=== PATIENT | female | born 1985 | race African-American/Black ===

== ENCOUNTER 2017-04-25 13:36 | Emergency (ER) | payer OTHER ==
[~2017-04-25] VITALS: Ht 167.6 cm; Wt 55.8 kg
[2017-04-25 13:47] VITALS: BP 136/76
--- NOTE | 2017-04-25 13:54 | NUR ---
Patient ambulated to bed 6. RN evaluating patient at bedside.
--- NOTE | 2017-04-25 13:55 | NUR ---
31 /F bib self for bitlateral ingrown toenails both great toes X 6 MO. PAIN BOTH BIG TOE NAILS . DENIES N/V/D; SKIN IS PINK/WARM/DRY; AAOX4 WITH EVEN AND STEADY GAIT; LUNGS CLEAR BL; HR EVEN AND REGULAR; PT DENIES ANY FEVER, CP, SOB, OR COUGH AT THIS TIME; PATIENT STATES PAIN OF 7/10 AT THIS TIME; VSS; PATIENT POSITIONED FOR COMFORT; HOB ELEVATED; BEDRAILS UP X2; BED DOWN. ER MD MADE AWARE OF PT STATUS.
--- NOTE | 2017-04-25 14:04 | NUR ---
ER MD DR PEREZ EVALUATING PT AT BEDSIDE.
[2017-04-25] MEDS ORDERED: LIDOCAINE/EPI 1% 1:100000 20 ML VIAL INJ ONE (14:15)
[2017-04-25] MEDS ORDERED: LIDOCAINE/EPI MPF 1%1:200000 30 ML VIAL INJ SCH (14:25)
[2017-04-25] MEDS ORDERED: LIDOCAINE/EPI 2% 1:100000 20 ML VIAL INJ ONE ×2 (14:30→14:32)
[2017-04-25 15:30] VITALS: BP 106/68
== END 2017-04-25 15:30 | disposition home or self-care (01) ==
LOC: MED 13:36
DX: L60.0 Ingrowing nail (principal)
CPT/HCPCS: 11765; 99284; J2001

== ENCOUNTER 2023-09-21 16:29 | Emergency (ER) | payer OTHER ==
[~2023-09-21] VITALS: Ht 157.5 cm; Wt 59.0 kg
[2023-09-21 17:05] VITALS: BP 111/62; PULSE 86; RESP 18; TEMP 97; O2SAT 98
[2023-09-21] MEDS ORDERED: ONDA-188 PO (19:04)
[2023-09-21] MEDS ORDERED: ACET-8905 PO (19:04)
== END 2023-09-21 19:41 | disposition home or self-care (01) ==
LOC: MED 16:29
DX: S00.83XA Contusion of other part of head, initial encounter (principal); Z79.899 Other long term (current) drug therapy; W22.8XXA Striking against or struck by other objects, initial encounter; Y92.89 Other specified places as the place of occurrence of the external cause; Y93.89 Activity, other specified; Y99.8 Other external cause status
CPT/HCPCS: 70250; 99283

== ENCOUNTER 2024-05-02 09:23 | Emergency (ER) | payer OTHER ==
[~2024-05-02] VITALS: Ht 165.1 cm; Wt 62.1 kg
[~2024-05-02 09:23] MED LIST: ACET-8905 PO; ONDA-188 PO
[2024-05-02 09:35] VITALS: BP 106/73; PULSE 74; RESP 16; TEMP 97.8; O2SAT 100
[2024-05-02 11:23] LABS: FLU B ANTIGEN negative (NEGATIVE)
[2024-05-02 11:25] LABS: FLU A ANTIGEN POSITIVE (NEGATIVE)
[2024-05-02] MEDS ORDERED: AMOX500C25 PO (12:53)
[2024-05-02] MEDS ORDERED: NAPR-1704 PO (12:53)
== END 2024-05-02 13:08 | disposition home or self-care (01) ==
LOC: MED 09:23
DX: S92.534A Nondisplaced fracture of distal phalanx of right lesser toe(s), initial encounter for closed fracture (principal); J32.9 Chronic sinusitis, unspecified; J11.1 Influenza due to unidentified influenza virus with other respiratory manifestations; Z20.822 Contact with and (suspected) exposure to COVID-19; Z79.899 Other long term (current) drug therapy; W22.8XXA Striking against or struck by other objects, initial encounter; Y92.89 Other specified places as the place of occurrence of the external cause; Y93.89 Activity, other specified; Y99.8 Other external cause status
CPT/HCPCS: 73660; 99284